=== PATIENT | female | born 1990 | race Caucasian/White ===

== ENCOUNTER 2016-04-29 13:19 | Outpatient (CLI) | payer BC ==
[2016-04-29 13:40] LABS: #Eosinphils 0.3 thou/uL (0.0-0.7); #Lymphocytes 2.3 thou/uL (1.20-3.40); #Monocytes 0.7 thou/uL (0.11-0.59); #Neutrophils 3.7 thou/uL (1.40-6.50); %Basophils 0.7 % (0.0-1.0); %Eosinophils 4.7 % (0.0-10.0); %Lymphocytes 32.5 % (21.0-51.0); %Monocytes 9.5 % (0.0-10.0); Hematocrit 36.1 % (36.0-47.0); Mean Platelet Volume 8.2 fL (7.4-10.4)
[2016-04-29 14:07] LABS: ALT (SGPT) 18 U/L (0-55); AST (SGOT) 16 U/L (5-34); Alkaline Phosphatase 62 U/L (40-150); Anion Gap 11 mmol/L (10-20); BUN (Urea Nitrogen) 9 mg/dL (7.0-18.7); Bilirubin, Total 0.2 mg/dL (0.2-1.2); Calc. Creatinine Clearance 0 mL/min (70-130); Carbon Dioxide 26 mmol/L (22-29); Chloride 105 mmol/L (98-107); Estimated GFR-MDRD Greater than 90; Globulin 3.3 g/dL (2.4-3.5); Protein, Total 7.2 g/dL (6.0-8.3)
== END 2016-04-29 13:20 | disposition home or self-care (01) ==
LOC: NAV LAB 13:19
PROVIDERS: ATTEND Physician Assistant Medical
DX: K51.90 Ulcerative colitis, unspecified, without complications (principal)
CPT/HCPCS: 36415; 80053; 85025

== ENCOUNTER 2016-06-12 13:06 | Outpatient (CLI) | payer BC ==
[2016-06-12 13:54] LABS: #Basophils 0.1 thou/uL (0.0-0.2); #Eosinphils 0.3 thou/uL (0.0-0.7); #Lymphocytes 2.3 thou/uL (1.20-3.40); #Monocytes 0.7 thou/uL (0.11-0.59); #Neutrophils 4.2 thou/uL (1.40-6.50); %Basophils 0.7 % (0.0-1.0); %Eosinophils 4.4 % (0.0-10.0); %Lymphocytes 29.9 % (21.0-51.0); %Monocytes 9.7 % (0.0-10.0); Hematocrit 37.8 % (36.0-47.0); Mean Platelet Volume 8.2 fL (7.4-10.4); Red Blood Cell (RBC) Count 4.14 mill/uL (4.20-5.40); White Blood Cell (WBC) Count 7.6 thou/uL (4.8-10.8)
[2016-06-12 14:12] LABS: ALT (SGPT) 19 U/L (0-55); AST (SGOT) 14 U/L (5-34); Alkaline Phosphatase 63 U/L (40-150); Anion Gap 13 mmol/L (10-20); BUN (Urea Nitrogen) 13 mg/dL (7.0-18.7); Bilirubin, Total 0.2 mg/dL (0.2-1.2); Calc. Creatinine Clearance 0 mL/min (70-130); Carbon Dioxide 26 mmol/L (22-29); Chloride 104 mmol/L (98-107); Estimated GFR-MDRD Greater than 90; Globulin 3.2 g/dL (2.4-3.5); Protein, Total 7.2 g/dL (6.0-8.3)
== END 2016-06-12 13:07 | disposition home or self-care (01) ==
LOC: NAV LAB 13:06
PROVIDERS: ATTEND Internal Medicine Gastroenterology
DX: K51.90 Ulcerative colitis, unspecified, without complications (principal)
CPT/HCPCS: 36415; 80053; 85025; 85652; 86140; 86480; 86706; 87340

== ENCOUNTER 2016-06-19 10:38 | Outpatient (CLI) | payer BC ==
--- NOTE | 2016-06-19 11:24 | RAD ---
TWO VIEWS OF THE CHEST: Date: 06-19-16 Comparison: None. History: Positive TB test. FINDINGS: Lungs are clear. Heart and mediastinal contour is within normal limits. No acute osseous abnormali ty. IMPRESSION: No acute findings. No radiographic evidence of active tuberculosis. POS: [facility]
== END 2016-06-19 10:39 | disposition home or self-care (01) ==
LOC: NAV RAD 10:38
PROVIDERS: ATTEND Internal Medicine Gastroenterology
DX: K51.90 Ulcerative colitis, unspecified, without complications (principal); R76.11 Nonspecific reaction to tuberculin skin test without active tuberculosis
CPT/HCPCS: 71020

== ENCOUNTER 2016-08-01 12:12 | Outpatient (CLI) | payer BC ==
[2016-08-01 13:08] LABS: ALT (SGPT) 16 U/L (0-55); AST (SGOT) 13 U/L (5-34); Alkaline Phosphatase 65 U/L (40-150); Bilirubin, Direct 0.1 mg/dL (0.1-0.3); Bilirubin, Total 0.2 mg/dL (0.2-1.2); Protein, Total 6.9 g/dL (6.0-8.3)
== END 2016-08-01 12:13 | disposition home or self-care (01) ==
LOC: NAV LAB 12:12
PROVIDERS: ATTEND Internal Medicine Infectious Disease
DX: A15.9 Respiratory tuberculosis unspecified (principal)
CPT/HCPCS: 36415; 80076

== ENCOUNTER 2017-03-10 15:28 | Inpatient (IN) | payer BC ==
[2017-03-10] MEDS ORDERED: methylPREDNISolone Sod Succ/PF 125 MG/2 ML VIAL ONE (16:03)
[2017-03-10 16:26] LABS: BHCG - Serum Negative (NEGATIVE); Pregs Control Bar Appear? YES (CONTROL BAR)
[2017-03-10 16:33] LABS: ALT (SGPT) 21 U/L (8-55); AST (SGOT) 18 U/L (5-34); Albumin 4.1 g/dL (3.5-5.0); Alkaline Phosphatase 84 U/L (40-150); Anion Gap 13 mmol/L (10-20); BUN (Urea Nitrogen) 12 mg/dL (7.0-18.7); Bilirubin, Total 0.2 mg/dL (0.2-1.2); Calc. Creatinine Clearance 0 mL/min (70-130); Calcium 9.4 mg/dL (7.8-10.44); Carbon Dioxide 25 mmol/L (22-29); Chloride 104 mmol/L (98-107); Estimated GFR-MDRD 89; Globulin 3.5 g/dL (2.4-3.5); Glucose 112 mg/dL (70-105); Lipase 30 U/L (8-78); Potassium 3.3 mmol/L (3.5-5.1); Protein, Total 7.6 g/dL (6.0-8.3); Sodium 139 mmol/L (136-145)
[2017-03-10 16:42] LABS: Band 11 % (5-11); Eosinophils 4 % (0-10); Hemoglobin 12.4 g/dL (12.0-16.0); Lymphocytes 28 % (21-51); MDiff Complete? YES; Mean Corpuscular HGB CONC 31.6 g/dL (32.0-36.0); Mean Corpuscular Hemoglobin 29.1 pg (27.0-31.0); Mean Corpuscular Volume 92.2 fl (81.0-99.0); Mean Platelet Volume 11.9 fL (7.4-10.4); Monocytes 8 % (0-10); Myelocyte 2 % (0-0); Neutrophil 45 % (42-75); PLT Morphology Comment Appears Decreased; Platelet Count 64 thou/uL (130-400); Promyelocytes 1 % (0-0); RBC Distribution Width 11.5 % (11.5-14.5); Reactive Lymphocytes 1 % (0-10); Red Blood Cell (RBC) Count 4.25 mill/uL (4.20-5.40)
[2017-03-10 17:44] LABS: Bilirubin Negative (Negative); Blood, Urine Negative (Negative); Glucose, Urine (Dipstick) Negative (Negative); Leukocyte Negative (Negative); Nitrite Negative (Negative); Protein, Urine (Dipstick) Negative (Neg-Trace); Specific Gravity, Urine 1.025 (1.005-1.030); Urobilinogen 0.2 mg/dL (0.2-1.0)
[2017-03-10 17:45] LABS: Clarity SL HAZY (Clear)
[2017-03-10] MEDS ORDERED: HYDROcodone/Acetaminophen 5/325 mg Tablet PO PRN ×2 (18:41)
[2017-03-10] MEDS ORDERED: Ondansetron ODT 4 MG TAB SL PRN (18:41)
[2017-03-10] MEDS ORDERED: Ondansetron HCl/PF 4 MG/2 ML Vial IVP PRN (18:41)
[2017-03-10] MEDS ORDERED: Acetaminophen 325 MG TAB PO PRN (18:41)
[2017-03-10] MEDS ORDERED: NS 0.9% w/ 40 MEQ KCL 1,000 ML IV SCH (18:45)
--- NOTE | 2017-03-10 19:55 | HP ---
CHIEF COMPLAINT: Bloody diarrhea on and off for a month. BRIEF HISTORY: This is a very pleasant 26-year-old female with inflammatory bowel disease and looks like it is ulcerative colitis and is on Imuran and Lialda. Apparently, has been having con tinued diarrhea and bleeding and today she felt lightheaded and dizzy, so came to the emergency room. In the emergency room, her workup is unremarkable for any significant infectious process. Her lact ic acid level was normal. White count was 6.0 and she was admitted for IV steroids. She denies any fever or chills, chest pain or shortness of breath. She denies any other concerns or questions. PAST MEDICAL HISTORY: Ulcerative colitis diagnosed in 2006. PAST SURGICAL HISTORY: None. MEDICATIONS: She is supposed to be on Imuran 100 mg daily and Lialda 3 tablets daily. Family is omid whitlock to bring me the medications to confirm. ALLERGIES: To p.o. PREDNISONE, it causes joint pains, but IV steroids really helps with her flare. FAMILY HISTORY: Noncontributory to current problem. PSYCHOSOCIAL HISTORY: No tobacco, alcohol or IV drug abuse. REVIEW OF SYSTEMS: Cardiovascular System: Denies any chest pain, shortness of breath, palpitations, paroxysmal nocturnal dyspnea, orthopnea or pedal edema. Respiratory System: Denies any chronic cou gh, expectoration or pleuritic type chest pain. Gastrointestinal System: See history of present ill ness. No nausea or vomiting. Genitourinary System: Denies any frequency, urgency, dysuria or hemat uria. Central Nervous System: No focal numbness, weakness or fainting spells, but she did feel ligh theaded this evening. PHYSICAL EXAMINATION: VITAL SIGNS: She is afebrile. This is from the emergency room, blood pressure is 119/82, rate is 85 , respirations are 12 and oxygen saturation is 99% on room air. HEENT: Normocephalic and atraumatic. Pupils are equally reactive to light and accommodation. NECK: No JVD, thyromegaly, cervical adenopathy, throat exudates or carotid bruits. CARDIOVASCULAR SYSTEM: S1, S2+, rate and rhythm regular. RESPIRATORY SYSTEM: Normal vesicular breath sounds heard in all lung nielsen. ABDOMEN: Soft, minimal tenderness and generalized. No guarding, rebound or rigidity. Bowel sounds heard in all quadrants. EXTREMITIES: Without cyanosis or clubbing. CENTRAL NERVOUS SYSTEM: Grossly nonfocal. LABORATORY VALUES: Done in the emergency room shows a white count of 6.0, hemoglobin and hematocrit are 12.4 and 39.2, platelet count is low at 64. Sodium 139, potassium is low at 3.3, BUN and creatin ine are 12 and 0.78. Blood sugar is 112. Liver functions are normal. Serum test is negat regino. IMPRESSION: 1. Ulcerative colitis flare. 2. Thrombocytopenia and hypokalemia. PLAN: 1. IV Solu-Medrol 40 mg q.8 hours. 2. Pepcid 20 mg b.i.d. 3. Clear liquid diet, advance as tolerated. 4. Recheck BMP in the morning. 5. IV fluids with 40 mEq of K at 175 mL an hour. 6. Activity: As tolerated. 7. Discussed with patient and mom in detail and all questions answered. 8. Meets criteria for 2-minute inpatient stay normal. She states she takes about 3-5 days of IV apolinar roids work and family is going to bring me her home medications.
[2017-03-10] MEDS: Famotidine 20 MG TAB PO SCH (20:31)
[2017-03-11 05:20] LABS: #Lymphocytes 0.9 thou/uL (1.20-3.40); #Monocytes 0.2 thou/uL (0.11-0.59); #Neutrophils 5.7 thou/uL (1.40-6.50); %Basophils 0.3 % (0.0-1.0); %Lymphocytes 13.3 % (21.0-51.0); %Monocytes 3.2 % (0.0-10.0); %Neutrophils 83.1 % (42.0-75.0); Hemoglobin 11.3 g/dL (12.0-16.0); Mean Corpuscular HGB CONC 31.6 g/dL (32.0-36.0); Mean Corpuscular Hemoglobin 29.2 pg (27.0-31.0); Mean Corpuscular Volume 92.4 fl (81.0-99.0); Mean Platelet Volume 10.1 fL (7.4-10.4); Platelet Count 50 thou/uL (130-400); RBC Distribution Width 11.4 % (11.5-14.5); Red Blood Cell (RBC) Count 3.86 mill/uL (4.20-5.40); White Blood Cell (WBC) Count 6.8 thou/uL (4.8-10.8)
[2017-03-11 05:21] LABS: MDiff Complete? YES; Manual Diff?? NO
[2017-03-11 05:32] LABS: Anion Gap 11 mmol/L (10-20); BUN (Urea Nitrogen) Less than 4 mg/dL (7.0-18.7); Calc. Creatinine Clearance 151 mL/min (70-130); Calcium 8.6 mg/dL (7.8-10.44); Carbon Dioxide 22 mmol/L (22-29); Chloride 108 mmol/L (98-107); Estimated GFR-MDRD Greater than 90; Glucose 125 mg/dL (70-105); Potassium 4.2 mmol/L (3.5-5.1); Sodium 137 mmol/L (136-145)
[2017-03-11] MEDS ORDERED: Acetaminophen 325 MG TAB PO PRN (09:33)
[2017-03-11] MEDS ORDERED: HYDROcodone/Acetaminophen 5/325 mg Tablet PO PRN ×2 (09:34)
[2017-03-11] MEDS ORDERED: Ondansetron HCl/PF 4 MG/2 ML Vial IVP PRN (09:36)
[2017-03-11] MEDS ORDERED: Ondansetron ODT 4 MG TAB SL PRN (09:36)
[2017-03-11] MEDS: Famotidine 20 MG TAB PO SCH ×2 (09:41→20:05)
--- NOTE | 2017-03-11 13:34 | PRG ---
DATE OF SERVICE: 03/11/2017 SUBJECTIVE: Ms. Louis is feeling better. She did have one bowel movement. She noticed some blo od, but stools were formed. Her cramping is much improved. No fever or chills. OBJECTIVE: VITAL SIGNS: She is afebrile, heart rate 62, respirations 16, oxygen saturation 98%, and blood press ure 101/51. CARDIOVASCULAR SYSTEM: S1, S2 plus. RESPIRATORY SYSTEM: Normal vesicular breath sounds. ABDOMEN: Soft, nontender, bowel sounds heard in all quadrants. EXTREMITIES: Without cyanosis or clubbing. LABORATORY DATA: Sodium 137, potassium is back to normal at 4.2, BUN and creatinine is 4 and 0.63. Blood sugars are 112 and 125. White count of 6.8, hemoglobin and hematocrit is 11.3 and 35.7, and pl atelet count is down to 50,000. IMPRESSION: 1. Flare of ulcerative colitis. 2. Resolved hypokalemia. 3. Thrombocytopenia. PLAN: 1. Continue current medications. 2. Resume Imuran and mesalamine. 3. Monitor platelet count. 4. Advanced to regular diet. 5. Stop IV fluids. 6. Activity as tolerated. 7. Discussed with the patient and mom in detail and all questions answered.
[2017-03-11 14:22] VITALS: BMI 23.1
[2017-03-12 05:22] LABS: #Lymphocytes 1.3 thou/uL (1.20-3.40); #Monocytes 0.8 thou/uL (0.11-0.59); #Neutrophils 9.8 thou/uL (1.40-6.50); %Basophils 0.1 % (0.0-1.0); %Lymphocytes 10.7 % (21.0-51.0); %Monocytes 6.9 % (0.0-10.0); %Neutrophils 82.2 % (42.0-75.0); Hemoglobin 11.7 g/dL (12.0-16.0); Mean Corpuscular HGB CONC 31.9 g/dL (32.0-36.0); Mean Corpuscular Volume 91.1 fl (81.0-99.0); Mean Platelet Volume 11.7 fL (7.4-10.4); PLT Morphology Comment Appears Decreased; Platelet Count 80 thou/uL (130-400); RBC Distribution Width 11.3 % (11.5-14.5); RBC Morphology Normal; Red Blood Cell (RBC) Count 4.03 mill/uL (4.20-5.40); White Blood Cell (WBC) Count 11.9 thou/uL (4.8-10.8)
[2017-03-12 05:25] LABS: MDiff Complete? YES; Manual Diff?? NO
[2017-03-12 05:39] LABS: Anion Gap 11 mmol/L (10-20); BUN (Urea Nitrogen) 12 mg/dL (7.0-18.7); Calc. Creatinine Clearance 142 mL/min (70-130); Calcium 9.2 mg/dL (7.8-10.44); Carbon Dioxide 24 mmol/L (22-29); Chloride 107 mmol/L (98-107); Estimated GFR-MDRD Greater than 90; Glucose 146 mg/dL (70-105); Potassium 4.2 mmol/L (3.5-5.1); Sodium 138 mmol/L (136-145)
[2017-03-12] MEDS: AZATHIOPRINE 100 MG PO SCH (08:40)
[2017-03-12] MEDS: Famotidine 20 MG TAB PO SCH ×2 (08:40→21:13)
[2017-03-12] MEDS: MESALAMINE PO SCH (08:41)
[2017-03-12] MEDS ORDERED: azaTHIOprine 50 MG TAB PO SCH (09:00)
[2017-03-12] MEDS ORDERED: MESALAMINE PO SCH (09:00)
--- NOTE | 2017-03-12 13:32 | PRG ---
DATE OF SERVICE: 03/12/2017 SUBJECTIVE: Ms. Louis is doing the same. She is tolerating her p.o. intake. She still has some blood in her stool. No fever. OBJECTIVE: VITAL SIGNS: She is afebrile, heart rate 71, respiration 16, oxygen saturation 96%, and blood pressu re is 98/56. CARDIOVASCULAR SYSTEM: S1, S2 plus. RESPIRATORY SYSTEM: Normal vesicular breath sounds. ABDOMEN: Soft, nontender, bowel sounds heard in all quadrants. EXTREMITIES: Without cyanosis or clubbing. LABORATORY DATA: White blood count is a little high at 11.9, most likely due to the steroids. Hemog lobin and hematocrit is normal at 11.7 and 36.7, platelet count is up at 80. Sodium 138, potassium 4 .2, BUN and creatinine is 12 and 1.67, blood sugars are 112, 125, 146, again likely due to steroids. IMPRESSION: 1. Ulcerative colitis flare. 2. Resolved hypokalemia. 3. Leukocytosis, likely due to steroids. 4. Chronic anemia. PLAN: 1. Continue current medications. 2. Nutritional support. 3. Increased activity. 4. Monitor CBC. 5. Thrombocytopenia, improving. 6. Discussed with patient and mom in detail and all questions answered.
[2017-03-13] MEDS: Famotidine 20 MG TAB PO SCH ×2 (08:47→21:02)
[2017-03-13] MEDS: AZATHIOPRINE 100 MG PO SCH (08:47)
[2017-03-13] MEDS: MESALAMINE PO SCH (08:47)
--- NOTE | 2017-03-13 13:17 | PRG ---
DATE OF SERVICE: 03/13/2017 SUBJECTIVE: Ms. Louis is doing better. She did not have any blood in her bowel movement last ni ght. She had trace amount this morning, but she is feeling better. The plan is to taper her off or transition her to oral steroids tomorrow if she has no further issues today. Her laboratory values f rom today are pending. OBJECTIVE: VITAL SIGNS: She is afebrile, heart rate 58, respirations 18, oxygen saturation 97%, and blood press ure is 100/56. CARDIOVASCULAR: S1 and S2 plus. RESPIRATORY: Normal vesicular breath sounds. ABDOMEN: Soft, nontender, bowel sounds heard in all quadrants. EXTREMITIES: Without cyanosis or clubbing. IMPRESSION: 1. Ulcerative colitis flare. 2. Improving thrombocytopenia. 3. Resolved hypokalemia. PLAN: 1. Continue current medications. 2. Recheck laboratory values. 3. Regular diet. 4. Increase activity. 5. Anticipate switching her to oral steroids tomorrow. I discussed with patient in detail and all questions answered.
[2017-03-13 14:07] LABS: #Basophils 0.1 thou/uL (0.0-0.2); #Lymphocytes 1.4 thou/uL (1.20-3.40); #Neutrophils 13.5 thou/uL (1.40-6.50); %Basophils 0.3 % (0.0-1.0); %Lymphocytes 8.6 % (21.0-51.0); %Monocytes 6.1 % (0.0-10.0); %Neutrophils 84.9 % (42.0-75.0); Hemoglobin 12.3 g/dL (12.0-16.0); Mean Corpuscular HGB CONC 31.6 g/dL (32.0-36.0); Mean Corpuscular Hemoglobin 29.2 pg (27.0-31.0); Mean Corpuscular Volume 92.4 fl (81.0-99.0); Mean Platelet Volume 11.2 fL (7.4-10.4); Platelet Count 128 thou/uL (130-400); RBC Distribution Width 11.2 % (11.5-14.5); Red Blood Cell (RBC) Count 4.22 mill/uL (4.20-5.40); White Blood Cell (WBC) Count 15.8 thou/uL (4.8-10.8)
[2017-03-13 14:36] LABS: Anion Gap 14 mmol/L (10-20); BUN (Urea Nitrogen) 13 mg/dL (7.0-18.7); Calc. Creatinine Clearance 109 mL/min (70-130); Calcium 9.1 mg/dL (7.8-10.44); Carbon Dioxide 25 mmol/L (22-29); Chloride 103 mmol/L (98-107); Estimated GFR-MDRD 78; Glucose 157 mg/dL (70-105); Potassium 3.9 mmol/L (3.5-5.1); Sodium 138 mmol/L (136-145)
[2017-03-14 05:12] LABS: #Basophils 0.1 thou/uL (0.0-0.2); #Lymphocytes 1.7 thou/uL (1.20-3.40); #Monocytes 1.3 thou/uL (0.11-0.59); #Neutrophils 13.7 thou/uL (1.40-6.50); %Basophils 0.4 % (0.0-1.0); %Lymphocytes 10.3 % (21.0-51.0); %Monocytes 7.7 % (0.0-10.0); %Neutrophils 81.5 % (42.0-75.0); Hemoglobin 12.4 g/dL (12.0-16.0); Mean Corpuscular HGB CONC 32.8 g/dL (32.0-36.0); Mean Corpuscular Hemoglobin 29.6 pg (27.0-31.0); Mean Corpuscular Volume 90.1 fl (81.0-99.0); Mean Platelet Volume 10.6 fL (7.4-10.4); Platelet Count 139 thou/uL (130-400); RBC Distribution Width 11.2 % (11.5-14.5); White Blood Cell (WBC) Count 16.7 thou/uL (4.8-10.8)
[2017-03-14 05:29] LABS: Calc. Creatinine Clearance 136 mL/min (70-130); Calcium 8.9 mg/dL (7.8-10.44); Chloride 104 mmol/L (98-107); Estimated GFR-MDRD Greater than 90; Glucose 191 mg/dL (70-105); Potassium 4.1 mmol/L (3.5-5.1); Sodium 136 mmol/L (136-145)
[2017-03-14 05:51] LABS: Carbon Dioxide 24 mmol/L (22-29)
[2017-03-14 05:53] LABS: BUN (Urea Nitrogen) 14 mg/dL (7.0-18.7)
[2017-03-14 05:54] LABS: Anion Gap 12 mmol/L (10-20)
[2017-03-14] MEDS: Famotidine 20 MG TAB PO SCH (08:45)
[2017-03-14] MEDS: AZATHIOPRINE 100 MG PO SCH (08:45)
[2017-03-14 09:06] VITALS: BP 104/57; TEMP 97.4
[2017-03-14] MEDS: MESALAMINE PO SCH (09:24)
--- NOTE | 2017-03-14 11:06 | DIS ---
DATE OF ADMISSION: 03/10/2017 DATE OF DISCHARGE: 03/14/2017 PRINCIPAL DIAGNOSIS: Ulcerative colitis flare. SECONDARY DIAGNOSES: 1. Resolved hypokalemia. 2. Resolved thrombocytopenia. 3. Leukocytosis, likely secondary to steroids. 4. Hyperglycemia, likely secondary to steroids. COMPLICATIONS: None. ADVERSE REACTIONS: None. PROCEDURES: None. CONSULTATIONS: None. HOSPITAL COURSE: The patient was admitted after noticing 10-20 bowel movements a day for the last fe w months, but over the last couple of weeks, she has noticed some blood in her stool along with light headedness and dizziness, so she presented to the emergency room. Her workup was essentially unremar kable. She was admitted to the hospital and started on IV Solu-Medrol, which apparently works for he r in the past and she has done well. She started having formed stools and her bleeding stopped yeste rday. She is also tolerating her regular diet. Her IV fluids were stopped. Her potassium was repla claudia. Her platelet count which was as low as 50, is up to 139,000. Her white count has increased to 16.9, but that is directly I think related to her steroids. Her blood sugar levels have also been up . She was continued on her Imuran and her mesalamine. She is deemed stable for discharge and we are going to discharge her home on budesonide ER 9 mg daily for about 2 weeks. She states that she gets significant joint pains with prednisone. She states that she took the budesonide in 2014 and she di d not have any issues. I have sent in a month supply of her azathioprine and mesalamine to [facility]. PHYSICAL EXAMINATION: VITAL SIGNS: On the day of discharge, she is afebrile, heart rate is 59, respirations 18, oxygen sat uration 96% and blood pressure is 99/65. CARDIOVASCULAR SYSTEM: S1, S2 plus. RESPIRATORY SYSTEM: Normal vesicular breath sounds. ABDOMEN: Soft, nontender, bowel sounds heard in all quadrants. EXTREMITIES: Without cyanosis or clubbing. Peripheral pulses are palpable. LABORATORY VALUES: White count of 16.7, H&H is 12.4 and 37.9, platelet count is 139, it was as low a s 50. Chemistry shows a sodium 136, potassium 4.1, BUN and creatinine is 14 and 0.7 and blood sugar is 191. DISCHARGE MEDICATIONS: 1. azathioprine 100 mg p.o. daily. 2. Mesalamine 3 tablets daily that is Lialda. 3. Budesonide ER 9 mg, which is Uceris 1 tablet daily and advised her to take it for about a week to 10 days and then she can stop it. DIET: As tolerated. ACTIVITY: As tolerated. FOLLOWUP: She is to follow up in my office in 4 weeks. Once she is off the steroids to recheck her CBC to make sure her leukocytosis has resolved. She is to return to the ER if the symptoms recur. S he is also to follow up with her nurses aide in the next couple of weeks. For full details, vasile malik see chart.
== END 2017-03-14 09:45 | disposition home or self-care (01) | DRG 387 ==
LOC: NAV ERS 15:28 → UNDOADMIN 18:08 → NAV ACUTE 18:08
PROVIDERS: ADMIT Internal Medicine; ATTEND Internal Medicine
DX: K51.911 Ulcerative colitis, unspecified with rectal bleeding (principal); D69.6 Thrombocytopenia, unspecified; E87.6 Hypokalemia; R73.9 Hyperglycemia, unspecified; T38.0X5A Adverse effect of glucocorticoids and synthetic analogues, initial encounter; D72.829 Elevated white blood cell count, unspecified; Z88.8 Allergy status to other drugs, medicaments and biological substances
CPT/HCPCS: 36415; 80048; 80053; 81003; 83605; 83690; 84703; 85025; 93005; 96361; 96374; A4216; J2920; J2930

== ENCOUNTER 2017-09-23 19:43 | Observation (INO) | payer BC ==
[~2017-09-23 19:43] MED LIST: Iopamidol 370 76% 100 ML VIAL ONE
[2017-09-23 20:07] LABS: Bilirubin Negative (Negative); Blood, Urine Negative (Negative); Glucose, Urine (Dipstick) Negative (Negative); Leukocyte Negative (Negative); Nitrite Negative (Negative); Protein, Urine (Dipstick) 30 mg/dL (Neg-Trace); Specific Gravity, Urine 1.015 (1.005-1.030); Urobilinogen 0.2 mg/dL (0.2-1.0)
[2017-09-23 20:10] LABS: #Basophils 0.1 thou/uL (0.0-0.2); #Eosinphils 0.1 thou/uL (0.0-0.7); #Monocytes 1.2 thou/uL (0.11-0.59); #Neutrophils 10.1 thou/uL (1.40-6.50); %Basophils 0.4 % (0.0-1.0); %Eosinophils 0.9 % (0.0-10.0); %Lymphocytes 20.5 % (21.0-51.0); %Monocytes 8.3 % (0.0-10.0); %Neutrophils 69.9 % (42.0-75.0); Hemoglobin 13.5 g/dL (12.0-16.0); Mean Corpuscular Hemoglobin 28.5 pg (27.0-31.0); Mean Corpuscular Volume 86.5 fl (81.0-99.0); Mean Platelet Volume 8.6 fL (7.4-10.4); Platelet Count 242 thou/uL (130-400); RBC Distribution Width 11.4 % (11.5-14.5); Red Blood Cell (RBC) Count 4.75 mill/uL (4.20-5.40); White Blood Cell (WBC) Count 14.4 thou/uL (4.8-10.8)
[2017-09-23 20:12] LABS: Clarity SL HAZY (Clear)
[2017-09-23 20:13] LABS: Pregnancy Test - Urine (BHCG) Negative (Negative); Pregu Control Background? CLEAR/WHITE (CLR/WHITE); Pregu Control Bar Appear? YES (CONTROL BAR); Specific Gravity 1.015 (1.002-1.036)
[2017-09-23 20:17] LABS: RBC/HPF 0-3 HPF (0-3); Squamous Epithelial 0-3 HPF (0-3); WBC/HPF 0-3 HPF (0-3)
[2017-09-23 20:29] LABS: ALT (SGPT) 16 U/L (8-55); AST (SGOT) 14 U/L (5-34); Albumin 4.3 g/dL (3.5-5.0); Alkaline Phosphatase 71 U/L (40-150); Anion Gap 14 mmol/L (10-20); BUN (Urea Nitrogen) 12 mg/dL (7.0-18.7); Bilirubin, Total 0.6 mg/dL (0.2-1.2); Calc. Creatinine Clearance 0 mL/min (70-130); Calcium 9.5 mg/dL (7.8-10.44); Carbon Dioxide 24 mmol/L (22-29); Chloride 102 mmol/L (98-107); Estimated GFR-MDRD 88; Globulin 3.7 g/dL (2.4-3.5); Glucose 89 mg/dL (70-105); Potassium 3.7 mmol/L (3.5-5.1); Sodium 136 mmol/L (136-145)
[2017-09-23] MEDS ORDERED: Morphine 4 MG/ML Carpuject ONE (20:29)
[2017-09-23] MEDS ORDERED: Ketorolac Tromethamine 30 MG/ML VIAL ONE (20:29)
[2017-09-23] MEDS ORDERED: Ondansetron HCl/PF 4 MG/2 ML Vial ONE (20:29)
[2017-09-23 20:49] LABS: Lipase 22 U/L (8-78)
--- NOTE | 2017-09-23 22:42 | CT ---
CT ABDOMEN AND PELVIS WITH IV CONTRAST 09/23/17 Multiple axial tomograms obtained through the abdomen and pelvis with IV enhancement. INDICATIONS: Abdominal pain. History of Crohn's disease. Lung bases are clear. The liver, spleen, and pancreas are unremarkable. Adrenal glands and kidneys are unremarkable. Small bowel loops are unremarkable. No evidence of mural thickening. The terminal ileum appears unremarkable. There is some mural thickening in the cecum and perhaps some mild luminal narrowing at the terminal ileum. However, no significant mural thickening of the terminal ileum. The appendix is upper normal size measured at 8 to 9 mm. There is enhancement of the appendiceal wall . No significant surrounding inflammatory change seen. Images through the pelvis show uterus deviated to the left. An IUD is in the endometrial cavity. Adne xa appear unremarkable. Both ovaries appear unremarkable with normal appearing follicles. There appea rs to be an involuting follicle in the right ovary with enhancing rim. No free fluid. The urinary emmanuel dder is distended and unremarkable. IMPRESSION: Mural thickening in the cecum and perhaps luminal narrowing in the terminal ileum which may be second bruno to Crohn's. The appendix is upper normal size with appendiceal wall enhancement. This is nonspeci fic. No significant surrounding inflammatory change seen. Recommend clinical correlation and followup as indicated. POS: [facility]
[2017-09-23] MEDS ORDERED: methylPREDNISolone Sod Succ/PF 125 MG/2 ML VIAL ONE (22:47)
[2017-09-23 23:43] VITALS: BMI 25.9
[2017-09-23] MEDS ORDERED: Morphine 4 MG/ML Carpuject SLOW IVP PRN (23:43)
[2017-09-23] MEDS ORDERED: Ondansetron HCl/PF 4 MG/2 ML Vial IVP PRN (23:44)
[2017-09-24] MEDS: Dextrose 5 %-0.45 % NaCl 1,000 ML IV SCH ×2 (00:13→08:15)
[2017-09-24 05:13] LABS: #Lymphocytes 0.7 thou/uL (1.20-3.40); #Monocytes 0.1 thou/uL (0.11-0.59); #Neutrophils 9.2 thou/uL (1.40-6.50); %Basophils 0.1 % (0.0-1.0); %Lymphocytes 7.2 % (21.0-51.0); %Monocytes 0.6 % (0.0-10.0); %Neutrophils 92.1 % (42.0-75.0); Hemoglobin 12.3 g/dL (12.0-16.0); Mean Corpuscular HGB CONC 33.2 g/dL (32.0-36.0); Mean Corpuscular Hemoglobin 28.8 pg (27.0-31.0); Mean Corpuscular Volume 86.7 fl (81.0-99.0); Mean Platelet Volume 8.3 fL (7.4-10.4); Platelet Count 194 thou/uL (130-400); RBC Distribution Width 11.4 % (11.5-14.5); Red Blood Cell (RBC) Count 4.29 mill/uL (4.20-5.40)
[2017-09-24 05:25] LABS: Anion Gap 11 mmol/L (10-20); BUN (Urea Nitrogen) 12 mg/dL (7.0-18.7); Calc. Creatinine Clearance 142 mL/min (70-130); Calcium 8.7 mg/dL (7.8-10.44); Carbon Dioxide 23 mmol/L (22-29); Chloride 104 mmol/L (98-107); Estimated GFR-MDRD Greater than 90; Glucose 176 mg/dL (70-105); Potassium 4.1 mmol/L (3.5-5.1); Sodium 134 mmol/L (136-145)
[2017-09-24 08:02] VITALS: BP 96/55; TEMP 98
[2017-09-24] MEDS ORDERED: Hyoscyamine Sulfate SL 0.125 mg Tablet PO PRN (13:24)
--- NOTE | 2017-09-24 14:20 | SS ---
DATE OF ADMISSION: 09/23/2017 DATE OF DISCHARGE: 09/24/2017 This is a very pleasant 27-year-old female with history of ulcerative colitis who was on Im uran and sulfasalazine, but apparently has not been taking it for the last 5 months due to insurance coverage. She has been doing well until the day prior to admission when she started noticing signifi cant abdominal cramping pain. There was no radiation. There was no diarrhea. No nausea or vomiting . No fever or chills. Normally when she gets a flareup she gets significant amounts of diarrhea and bloody stools. She denies any unusual diet or activity. She does state that 2 other [address] in [address] she works also had similar symptoms. She presented to the emergency room and underwent workup which showed a mildly elevated white blood count of 13,000. She also had a CT scan done which showed mural thickening in the cecum and possible luminal narrowing in the terminal ileum which may be seco ndary to Crohn's. The appendix is upper normal in size with appendiceal wall enhancement. They stat e that this is nonspecific. No significant inflammatory changes. She was admitted to the hospital w ith a diagnosis of possible flareup of her Crohn's versus ulcerative colitis and was started on IV fl uids, IV steroids, and IV morphine. She did not require any pain medicines. Her pain had pretty muc h resolved by this morning and she was started on a clear liquid diet. She tolerated the clear liqui d diet without any issues and this afternoon was advanced to a mechanically soft diet and she tolerat ed that as well without any issues. She is noticing some pain when she moves. No history of similar episodes in the past. PAST MEDICAL HISTORY: Ulcerative colitis which was diagnosed in 2006. PAST SURGICAL HISTORY: None. MEDICATIONS: She is supposed to be on Imuran 100 mg daily and sulfasalazine. She was also on Lialda 3 tablets daily but apparently insurance did not cover it and she was switched to sulfasalazine. 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 ALLERGIES: P.O. PREDNISONE, but she can tolerate p.o., budesonide and IV steroids. FAMILY HISTORY: Noncontributory to her current admission. PSYCHOSOCIAL HISTORY: No tobacco, alcohol, or IV drug abuse. REVIEW OF SYSTEMS: CARDIOVASCULAR: Denies any chest pain, shortness of breath, palpitations, paroxysmal nocturnal dyspn ea, orthopnea, pedal edema. RESPIRATORY: Denies any of chronic expiration or pleuritic type chest pain. GASTROINTESTINAL: See history of present illness. No hematemesis, melena, hematochezia. GENITOURINARY: No frequency, urgency, dysuria or hematuria. STRATEGIC BUSINESS DEVELOPMENT: Denies any focal numbness, weakness or fainting spells. MUSCULOSKELETAL: No myalgias or arthralgias. DERMATOLOGICAL: No rash. ENT: No changes in vision or hearing, swallowing or speech. PHYSICAL EXAMINATION: GENERAL: Very pleasant 27-year-old female in no apparent distress. She responds appropria tely to questions. VITAL SIGNS: She is afebrile, heart rate is 73, respirations 18, oxygen saturation 96% on room air, blood pressure 96/55. HEENT: Normocephalic, atraumatic. Pupils equal and reactive to light and accommodation. No JVD, th yromegaly or adenopathy, throat exudates or carotid bruits. CARDIOVASCULAR: S1, S2+, rate and rhythm regular. RESPIRATORY: Normal vesicular breath sounds heard in all lung nielsen. ABDOMEN: Soft, nontender, bowel sounds heard in all quadrants. No organomegaly, no palpable mass, n o CVA angle tenderness. No guarding, rebound or rigidity. EXTREMITIES: Without cyanosis or clubbing. Peripheral pulses are palpable. CENTRAL NERVOUS SYSTEM: Grossly nonfocal. LABORATORY VALUES: White count is down to 10,000, H&H is 12.3 and 37.2, 92% neutrophils, but no band s. Chemistry shows a sodium 134, potassium 4.1, BUN and creatinine 12 and 1.74. Blood sugars are 89 and 176. IMPRESSION: Crampy abdominal pain with mild thickening in the cecum and terminal ileum, but no other symptoms suggestive of ulcerative colitis/inflammatory bowel disease flare. She is also back to [facility] at this point, tolerating p.o. intake. A couple of her colleagues at work also had similar sympt oms. It makes me think that this is more a viral gastritis/gastroenteritis versus a true flareup of her ulcerative colitis. The plan is to stop her IV steroids, switch her to a mechanically soft bland diet, prescribe her some Levsin for abdominal cramping and discharge her home. I discussed with her mother in detail as well . If the symptoms recur, she is to call me and I may call in some steroids either way, she is suppos ed to see Dr. Wilson, her mantel craftsman within a week and see if she needs to get back on her ma intenance medications. If her symptoms recur, also she should see Dr. Wilson sooner and have him chel ck the CT scan and examine her and see if he thinks it may be a flareup of her Crohn's/ulcerative col itis/inflammatory bowel disease and formulate a treatment plan. Both mom and patient are comfortable with the current plan. She will be discharged today. She is to call me with any questions or bernice rns. Activity as tolerated. The only discharge medicine from here will be the Levsin sublingual q.4 -6h. p.r.n. She did not want a prescription for Imuran and sulfasalazine as she states that her insu humphrey does not cover it and she is going to talk to Dr. Wilson and see if he can figure out an altern ative.
== END 2017-09-24 14:28 | disposition home or self-care (01) ==
LOC: NAV ERS 19:43 → NAV ACUTE 23:04
PROVIDERS: ADMIT Internal Medicine; ATTEND Internal Medicine
DX: A08.4 Viral intestinal infection, unspecified (principal); K50.90 Crohn's disease, unspecified, without complications; Z79.899 Other long term (current) drug therapy; Z88.8 Allergy status to other drugs, medicaments and biological substances; Z91.14 Patient's other noncompliance with medication regimen
CPT/HCPCS: 36415; 74177; 80048; 80053; 81003; 81015; 81025; 83690; 85025; 96361; 96374; 96375; 96376; G0378; J1885; J2270; J2405; J2920; J2930; J7042

== ENCOUNTER 2021-04-16 12:47 | Emergency (ER) | payer OTHER ==
[2021-04-17 14:50] LABS: SARS-CoV-2 PCR by NAA DETECTED (NotDetected)
== END 2021-04-16 13:48 | disposition home or self-care (01) ==
LOC: NAV ERS 12:47
DX: U07.1 COVID-19 (principal)
CPT/HCPCS: 99284; U0003; U0005

== ENCOUNTER 2021-11-03 13:44 | Emergency (ER) | payer OTHER ==
[2021-11-03] MEDS ORDERED: Sodium Chloride 0.9% 1,000 ML ONE (15:08)
[2021-11-03 15:22] LABS: #Basophils 0.1 thou/uL (0.0-0.2); #Eosinphils 0.7 thou/uL (0.0-0.7); #Lymphocytes 2.5 thou/uL (1.20-3.40); #Monocytes 0.8 thou/uL (0.11-0.59); #Neutrophils 3.7 thou/uL (1.40-6.50); %Basophils 0.7 % (0.0-1.0); %Eosinophils 8.5 % (0.0-10.0); %Lymphocytes 32.6 % (21.0-51.0); %Monocytes 10.2 % (0.0-10.0); Hemoglobin 11.2 g/dL (12.0-16.0); Mean Corpuscular HGB CONC 30.6 g/dL (32.0-36.0); Mean Corpuscular Hemoglobin 29.4 pg (27.0-31.0); Mean Corpuscular Volume 96.2 fL (78.0-98.0); Mean Platelet Volume 10.6 fL (7.4-10.4); Platelet Count 143 thou/uL (130-400); RBC Distribution Width 11.6 % (11.5-14.5); White Blood Cell (WBC) Count 7.7 thou/uL (4.8-10.8)
[2021-11-03 15:37] LABS: ALT (SGPT) 11 U/L (8-55); AST (SGOT) 11 U/L (5-34); Albumin 3.7 g/dL (3.5-5.0); Alkaline Phosphatase 65 U/L (40-110); Anion Gap 14 mmol/L (10-20); BUN (Urea Nitrogen) 9 mg/dL (7.0-18.7); Bilirubin, Total 0.3 mg/dL (0.2-1.2); Calc. Creatinine Clearance 0 mL/min (70-130); Calcium 8.9 mg/dL (7.8-10.44); Carbon Dioxide 26 mmol/L (22-29); Chloride 105 mmol/L (98-107); Estimated GFR 110; Globulin 3.4 g/dL (2.4-3.5); Glucose 88 mg/dL (70-105); Potassium 3.5 mmol/L (3.5-5.1); Protein, Total 7.1 g/dL (6.0-8.3); Sodium 141 mmol/L (136-145)
== END 2021-11-03 16:42 | disposition home or self-care (01) ==
LOC: NAV ERS 13:44
DX: K50.90 Crohn's disease, unspecified, without complications (principal)
CPT/HCPCS: 74177; 80053; 85025; 96360; J7050

== ENCOUNTER 2022-03-19 16:43 | Inpatient (IN) | payer OTHER ==
[2022-03-19 18:20] LABS: #Basophils 0.1 thou/uL (0.0-0.2); #Eosinphils 0.7 thou/uL (0.0-0.7); #Lymphocytes 2.8 thou/uL (1.20-3.40); #Monocytes 1.3 thou/uL (0.11-0.59); #Neutrophils 5.2 thou/uL (1.40-6.50); %Basophils 0.5 % (0.0-1.0); %Eosinophils 7.4 % (0.0-10.0); %Monocytes 12.7 % (0.0-10.0); %Neutrophils 51.4 % (42.0-75.0); Hemoglobin 11.9 g/dL (12.0-16.0); Mean Corpuscular Hemoglobin 30.7 pg (27.0-31.0); Mean Corpuscular Volume 93.1 fl (78.0-98.0); Mean Platelet Volume 8.9 fL (7.4-10.4); Platelet Count 221 10x3/uL (130-400); RBC Distribution Width 11.2 % (11.5-14.5); Red Blood Cell (RBC) Count 3.87 mill/uL (4.20-5.40); White Blood Cell (WBC) Count 10.1 10x3/uL (4.8-10.8)
[2022-03-19 18:28] LABS: PTT 32.4 sec (22.9-36.1)
[2022-03-19 18:36] LABS: ALT (SGPT) 13 U/L (8-55); AST (SGOT) 12 U/L (5-34); Albumin 3.6 g/dL (3.5-5.0); Alkaline Phosphatase 63 U/L (40-110); Anion Gap 13 mmol/L (10-20); BUN (Urea Nitrogen) 10 mg/dL (7.0-18.7); Bilirubin, Total 0.2 mg/dL (0.2-1.2); Calc. Creatinine Clearance 0 mL/min (70-130); Calcium 9.2 mg/dL (7.8-10.44); Carbon Dioxide 26 mmol/L (22-29); Chloride 106 mmol/L (98-107); Estimated GFR 92; Globulin 3.3 g/dL (2.4-3.5); Glucose 95 mg/dL (70-105); Protein, Total 6.9 g/dL (6.0-8.3); Sodium 141 mmol/L (136-145)
[2022-03-19] MEDS ORDERED: methylPREDNISolone Sod Succ 40 MG VIAL ONE (19:01)
[2022-03-19 20:25] VITALS: BMI 19.2
[2022-03-19] MEDS ORDERED: Ondansetron PF 4 MG/2 ML Vial IVP PRN (20:30)
[2022-03-19] MEDS ORDERED: Ondansetron ODT 4 MG TAB SL PRN ×2 (20:30→20:42)
[2022-03-19] MEDS ORDERED: Acetaminophen 325 MG TAB PO PRN (20:42)
[2022-03-19] MEDS ORDERED: Senokot S 8.6-50 MG TAB PO PRN (20:42)
[2022-03-19] MEDS ORDERED: Docusate 100 MG CAP PO PRN (20:43)
[2022-03-19] MEDS: Famotidine 20 MG TAB PO SCH (21:20)
[2022-03-19 22:43] LABS: SARS-CoV-2 NAA Rapid Test Not Detected (NotDetected)
[2022-03-20] MEDS: Sodium Chloride 0.9% 1,000 ML IV SCH ×3 (00:44→17:00)
[2022-03-20] MEDS ORDERED: Sodium Chloride 0.9% 1,000 ML IV SCH (00:45)
[2022-03-20] MEDS ORDERED: methylPREDNISolone Sod Succ 40 MG VIAL IVP SCH (04:00)
[2022-03-20 05:58] LABS: #Lymphocytes 1.2 thou/uL (1.20-3.40); #Monocytes 0.2 thou/uL (0.11-0.59); #Neutrophils 6.8 thou/uL (1.40-6.50); %Basophils 0.1 % (0.0-1.0); %Eosinophils 0.1 % (0.0-10.0); %Lymphocytes 14.7 % (21.0-51.0); %Monocytes 2.5 % (0.0-10.0); %Neutrophils 82.7 % (42.0-75.0); Mean Corpuscular HGB CONC 33.1 g/dL (32.0-36.0); Mean Corpuscular Hemoglobin 30.6 pg (27.0-31.0); Mean Corpuscular Volume 92.2 fl (78.0-98.0); Mean Platelet Volume 9.5 fL (7.4-10.4); Platelet Count 177 10x3/uL (130-400); RBC Distribution Width 10.9 % (11.5-14.5); Red Blood Cell (RBC) Count 3.61 mill/uL (4.20-5.40); White Blood Cell (WBC) Count 8.3 10x3/uL (4.8-10.8)
[2022-03-20] MEDS: Famotidine 20 MG TAB PO SCH ×2 (08:51→19:49)
[2022-03-20] MEDS ORDERED: FLU VACC QS2022-23(6MOS UP)/PF 60 MCG/0.5 ML SYRINGE IM ONE (09:00)
[2022-03-20] MEDS ORDERED: Mesalamine 1000 MG Suppository PR SCH (09:00)
[2022-03-20] MEDS: methylPREDNISolone Sod Succ 40 MG VIAL IVP SCH ×2 (11:45→19:49)
[2022-03-20 19:49] VITALS: BP 100/58; TEMP 98.2
== END 2022-03-20 20:05 | disposition home or self-care (01) | DRG 387 ==
LOC: NAV ERS 16:43 → NAV ACUTE 19:08
PROVIDERS: ADMIT Family Medicine; ATTEND Family Medicine
DX: K50.10 Crohn's disease of large intestine without complications (principal); Z20.822 Contact with and (suspected) exposure to COVID-19; Z98.890 Other specified postprocedural states
CPT/HCPCS: 36415; 74022; 80053; 85025; 85610; 85730; 87324; 87449; 96374; J2920; J7050; U0002